=== PATIENT | female | born 1985 | race Caucasian/White ===

== ENCOUNTER 2019-03-27 08:20 | Emergency (ER) | payer BC ==
--- NOTE | 2019-03-27 15:25 | EDM.PDOC ---
ED HPI GENERAL MEDICAL PROBLEM - General Chief Complaint: Gastrointestinal Problem Stated Complaint: CONSTIPATION Time Seen by Provider: 03/27/19 08:25 Source of Information: Reports: Patient History Limitations: Reports: No Limitations - History of Present Illness INITIAL COMMENTS - FREE TEXT/NARRATIVE: PtGenny presents to ER with complaints of dark bloody stools and tissue coming from he rectum. She states that she has been constipated, and has a history of chronic constipation. She states that she has not been taking her miralax or other medications for constipation. She noticed when she had a BM today, she could feel tissue or something abnormal coming from her rectum. Denies any abdominal pain. No nausea, vomiting, or diarrhea. Onset: Today Location: Reports: Other Quality: Reports: Burning Associated Symptoms: Reports: Other. Denies: Fever/Chills - Related Data Allergies Allergy/AdvReac Type Severity Reaction Status Date / Time erythromycin base Allergy Hives Verified 03/27/19 09:12 Home Meds: Home Meds . [No Known Home Meds] 03/27/19 [History] Past Medical History - Past Health History Medical/Surgical History: Denies Medical/Surgical History Social & Family History - Tobacco Use Smoking Status *Q: Never Smoker - Recreational Drug Use Recreational Drug Use: No ED ROS GENERAL - Review of Systems Review Of Systems: See Below Constitutional: Reports: No Symptoms HEENT: Reports: No Symptoms Respiratory: Reports: No Symptoms Cardiovascular: Reports: No Symptoms Endocrine: Reports: No Symptoms GI/Abdominal: Reports: Bloody Stool, Constipation. Denies: Abdominal Pain : Reports: No Symptoms Musculoskeletal: Reports: No Symptoms Skin: Reports: No Symptoms Neurological: Reports: No Symptoms Psychiatric: Reports: No Symptoms Hematologic/Lymphatic: Reports: No Symptoms ED EXAM, GENERAL - Physical Exam Exam: See Below Exam Limited By: No Limitations General Appearance: Alert, WD/WN, No Apparent Distress GI/Abdominal: Normal Bowel Sounds, Soft, Non-Tender, No Organomegaly, No Distention, No Mass (Female) Exam: Other (several large external skin tags/hemorrhoids noted on external exam.) Course - Vital Signs Last Recorded V/S: Last Vital Signs Temp 36.6 C 03/27/19 08:25 Pulse 81 03/27/19 08:25 Resp 16 03/27/19 08:25 BP 105/68 03/27/19 08:25 Pulse Ox 98 03/27/19 08:25 Departure - Departure Time of Disposition: 09:00 Disposition: Home, Self-Care 01 Clinical Impression: Hemorrhoids - Discharge Information Instructions: Hemorrhoids, [id number], Hydrocortisone rectal cream Forms: ED Department Discharge Additional Instructions: Drink plenty of fluids Anusol applied after every bowel movement/3 times daily. Miralax 17gm once daily with plenty of water. If you have trouble having a bowel movement,take half a bottle of magnesium citrate to help have a bowel movement. Sepsis Event Note - Evaluation Sepsis Screening Result: No Definite Risk - Focused Exam Vital Signs: Vital Signs Temp Pulse Resp BP Pulse Ox 03/27/19 08:25 36.6 C 81 16 105/68 98 Date Exam was Performed: 03/27/19 Time Exam was Performed: 15:19 - Assessment/Plan Plan: Drink plenty of fluids Anusol applied after every bowel movement/3 times daily. Miralax 17gm once daily with plenty of water. If you have trouble having a bowel movement,take half a bottle of magnesium citrate to help have a bowel movement.
== END 2019-03-27 09:00 | disposition home or self-care (01) ==
LOC: VM.ED 08:20
DX: K64.4 Residual hemorrhoidal skin tags (principal); Z88.1 Allergy status to other antibiotic agents
CPT/HCPCS: 99284

== ENCOUNTER 2022-04-16 23:32 | Emergency (ER) | payer BC, MEDICAID | END 2022-04-17 01:00 | disposition home or self-care (01) | LOC: VM.ED 23:32 | DX: N92.0 Excessive and frequent menstruation with regular cycle (principal) | CPT/HCPCS: 99283 ==

== ENCOUNTER 2022-10-29 12:43 | Emergency (ER) | payer BC, MEDICAID | END 2022-10-29 13:00 | disposition home or self-care (01) | LOC: VM.ED 12:43 | DX: R23.8 Other skin changes (principal); Z79.899 Other long term (current) drug therapy; Z88.6 Allergy status to analgesic agent; Z88.1 Allergy status to other antibiotic agents | CPT/HCPCS: 99282; 99283 ==